=== PATIENT | male | born 1990 | race Caucasian/White ===

== ENCOUNTER → 2017-11-24 | Outpatient (CLI) | payer OTHER ==
[~2017-11-24] MED LIST: ADVIN10/60 INH; ALLDSR/24 PO; FLNIN NAE; IBUP-1050 PO; REVIEWED
== END | disposition home or self-care (01) ==
LOC: C.LAB1850 16:42
PROVIDERS: ATTEND Internal Medicine
DX: E03.9 Hypothyroidism, unspecified (principal)